=== PATIENT | male | born 1945 | race Caucasian/White ===

== ENCOUNTER → 2020-01-04 10:07 | Outpatient (CLI) | payer MEDICARE, BC, SELFPAY ==
--- NOTE | ~2020-01-04 | XR_ITS ---
XR chest 2V DATE: 01/04/2020 10:49 INDICATION: Hypertension. Nonsmoker. TECHNIQUE: 2 views COMPARISON: None FINDINGS: Cardiomegaly with left ventricular enlargement. There is aortic calcification and mild unfo lding. No hilar or mediastinal enlargement. No pulmonary vascular congestion or pleural effusion or pneumoth orax. No pulmonary infiltrate or consolidation. Diffuse osteopenia. IMPRESSION: Cardiomegaly, left ventricular enlargement Aortic atherosclerosis No active pulmonary disease Reviewed, dictated and finalized at location A.
== END ==
PROVIDERS: PCP Internal Medicine; Visit Provider Internal Medicine
DX: I10 Essential (primary) hypertension (principal); I70.0 Atherosclerosis of aorta; I51.7 Cardiomegaly
CPT/HCPCS: 71046

== ENCOUNTER 2024-09-13 22:31 | Emergency (ER) | payer MEDICARE, SELFPAY ==
--- NOTE | ~2024-09-13 | CT_ITS ---
EXAMINATION: CT brain wo con DATE: 09/14/2024 00:34 INDICATION: Left hemiparesis. TECHNIQUE: Computed tomography (CT) of the head was performed without intravenous contrast. The mA wa s adjusted according to patient size. Iterative reconstruction technique was employed. The dose-lengt h product was 681.00 mGy-cm. COMPARISON: Head CT 03/08/2017 FINDINGS: There is acute hematoma involving the right thalamus and posterior limb right internal caps ule. There is an old infarct in the left thalamus. There is an old infarct in the right basal ganglia . There are scattered areas of low attenuation in the cerebral white matter. There is no acute ischem ic infarct or abnormal mass lesion. The ventricles are normal in size. There is mild mucosal thickeni ng in the paranasal sinuses. There are likely changes of ocular lens replacement surgeries. The masto id air cells are normal. IMPRESSION: 1. Acute hematoma involving the right thalamus and posterior limb right internal capsule. 2. 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 3. Mild nonspecific cerebral white matter disease, which likely represents chronic small vessel ische adán disease. Reviewed, dictated and finalized at location A. IMPRESSION: 1. Acute hematoma involving the right thalamus and posterior limb right interna l capsule. 2. 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 3. 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
--- NOTE | ~2024-09-13 | CT_ITS ---
EXAMINATION: CT cervical spine wo con DATE: 09/14/2024 00:35 INDICATION: Left arm and leg weakness. Fall. TECHNIQUE: Computed tomography (CT) of the cervical spine was performed without intravenous contrast. Automated exposure control and iterative reconstruction technique were employed. The dose-length pro duct was 570.40 mGy-cm. COMPARISON: CT cervical spine 03/08/2017 FINDINGS: There is kyphosis of cervical spine. Vertebral body heights are normal. There is moderately decreased disc height at C2-C3, severely decreased disc height at C3-C4 and C4-C5, moderately decrea sed disc height at C5-C6, and severely decreased disc height at C6-C7 and C7-T1. The following disc l evels are specifically discussed: C2-C3: There is severe right and mild left uncovertebral joint osteoarthritis. There is severe bilate ral facet joint osteoarthritis. There is mild right neural foraminal stenosis. There is no central ca nal stenosis. C3-C4: There is severe right and moderate left uncovertebral joint osteoarthritis. There is severe ri ght and moderate left facet joint osteoarthritis. There is moderate right and mild left neural forami nal stenosis. There is mild central canal stenosis. C4-C5: There is severe bilateral uncovertebral joint osteoarthritis. There is moderate bilateral face t joint osteoarthritis. There is moderate bilateral neural foraminal stenosis. There is mild central canal stenosis. C5-C6: There is moderate right and severe left uncovertebral joint osteoarthritis. There is mild bila teral facet joint osteoarthritis. There is mild left neural foraminal stenosis. There is mild central canal stenosis. C6-C7: There is severe bilateral uncovertebral joint osteoarthritis. There is mild bilateral facet syl int osteoarthritis. There is mild bilateral neural foraminal stenosis. There is mild central canal st enosis. C7-T1: There is severe bilateral uncovertebral joint osteoarthritis. There is severe bilateral facet joint osteoarthritis. There is mild left neural foraminal stenosis. There is no central canal stenosi s. IMPRESSION: 1. No fracture. 2. Severe cervical spondylosis. Reviewed, dictated and finalized at location A.
--- NOTE | ~2024-09-13 | CT_ITS ---
EXAMINATION: CTA brain carotid DATE: 09/14/2024 00:35 INDICATION: Left arm and leg weakness. TECHNIQUE: Computed tomographic angiography (CTA) of the head was performed with 100 mL Omnipaque-350 intravenous contrast. CTA of the neck was performed with intravenous contrast. Automated exposure co ntrol and iterative reconstruction technique were employed. The dose-length product was 1168.96 mGy-c m. Maximum intensity projection and volume rendered 3D-reconstructions were created by the technologi st on a separate workstation. COMPARISON: Head CT 09/14/2024 FINDINGS: HEAD CTA: There is a hematoma involving the right thalamus and posterior limb right internal capsule. There is an old infarct in the left thalamus. There is an old infarct in the right basal ganglia. Th ere are scattered areas of low attenuation in the cerebral white matter. There is no acute ischemic i nfarct or abnormal mass lesion. The ventricles are normal in size. There is mild mucosal thickening i n the paranasal sinuses. There are likely changes of ocular lens replacement surgeries. The mastoid a ir cells are normal. The vertebral arteries are codominant. There is no significant stenosis of basil ar artery or the posterior cerebral arteries. The posterior communicating arteries are normal. There is no significant stenosis of the intracranial internal carotid arteries or anterior or middle cerebr al arteries. Anterior communicating artery is normal. NECK CTA: There are no pathologically enlarged lymph nodes. There are nodules in the thyroid measurin g up to 12 mm, likely not clinically significant. There is no significant stenosis of the vertebral a rteries. There is mild plaque in the proximal internal carotid arteries. There is 6% stenosis of the proximal right internal carotid artery relative to normal distal artery lumen diameter (NASCET criter ia). There is 0% stenosis of the proximal left internal carotid artery relative to normal distal vicki ry lumen diameter. There is extensive dental disease. There is severe cervical spondylosis. IMPRESSION: 1. Acute hematoma involving the right thalamus and posterior limb right internal capsule. 2. 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 3. Mild nonspecific cerebral white matter disease, which likely represents chronic small vessel ische adán disease. 4. No aneurysm or significant intracranial arterial stenosis. 5. 6% stenosis of the proximal right internal carotid artery relative to normal distal artery lumen d iameter (NASCET criteria). 6. 0% stenosis of the proximal left internal carotid artery relative to normal distal artery lumen di ameter. Reviewed, dictated and finalized at location A. IMPRESSION: 1. Acute hematoma involving the right thalamus and posterior limb right interna l capsule. 2. 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 3. 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 4. No aneurysm or significant intracranial arterial stenosis. 5. 6% stenosis of the proximal right internal carotid artery relative to normal distal artery lumen diameter (NASCET criteria). 6. 0% stenosis of the proximal left internal carotid artery relative to normal distal artery lumen diameter.
--- NOTE | ~2024-09-13 | XR_ITS ---
XR chest 2V Ordering provider: Jeanie Yoo MD History: 79 years Male with . generalized weakness . Comparison: January 04, 2020 FINDINGS: MEDIASTINUM: The cardiac silhouette is slightly enlarged. LUNGS: No infiltrates, effusions or pneumothorax. OTHER: No free air under the diaphragm. Degenerative changes of the spine. IMPRESSION: No acute cardiopulmonary pathology. Reviewed, dictated and finalized at location A.
[2024-09-13 22:33] VITALS: BP 152/84; PULSE 99; RESP 15; TEMP 36.6; O2SAT 100
--- OUTSIDE RECORDS SUMMARY | 2024-09-13 22:33 | XMS_ITS | Encounter Summary ---
Author Organization [facility] Address [address] [place] [address] Care Team Providers Care [employer] S[employer] Name Role Phone Unavailable Primary Care Provider Unavailabl e Encounter Details Date Type Department Care Team (Late st Contact Info) Description 07/02/1998 Outpatient Historical [facility],NON-PATIENT Jonah Frost MD [address] [facility] [address] [place] [id number] Injury, other and unspecified, finger (Primary Dx) Social History Tobacco Use Types Packs/Day Years Used Date Smoking Tobacco: Never Assessed Sex and Gender Information Value Date Recorded Sex Assigned at Not on file Legal Sex Male 4:00 AM [employer] Gender Identity Not on file Sexual Orientation Not on file documented as of this encounter Plan of Treatment Not on file documented as of this encounter Visit Diagnoses Diagnosis Injury, other and unspecified, finger- Primary documented in this encounter
--- OUTSIDE RECORDS SUMMARY | 2024-09-13 22:33 | XMS_ITS | Data Portability ---
Author Organization [facility], Main Office Address [address] [place] [address] Assessment No assessment recorded. Plan of Treatment Reminders Order Date Submit Date Provider Last Modified By Organization Details Last Modified Time Details Appointments Any 30 2024 02:30P Simin Dillard NP Not available Not available Not available Lab PSA, total, serum or plasma 2023 024 JOSEPH Not available 09/23/2023 19:37:59 HbA1c (hemoglob in A1c), blood 2023 024 [facility] (Lab), [address] [place], [address], 09/24/2023 00:04:22 CBC w/ auto diff 2023 024 [facility] (Lab), [address] [place], [address], 09/23/2023 19:08:06 BMP, serum or plasma 2023 024 [facility] (Lab), [address] [place], [address], 09/23/2023 19:20:03 HbA1c (hemoglob in A1c), blood 2022 023 [facility], [address] [place], [address], 03/23/2023 07:38:12 CBC w/ auto diff 2022 023 [facility], [address] [place], [address], 03/22/2023 18:39:54 BMP, serum or plasma 2022 023 [facility], [address] [place], [address], 03/22/2023 18:58:38 lipid panel, serum 2022 023 [facility], [address] [place], [address], 03/22/2023 18:58:43 hepatic function panel, serum 2022 023 [facility], [address] [place], [address], 03/22/2023 18:58:47 PSA, serum or plasma 2022 023 [email or web address] [id number] [facility], [address] [place], [address], 03/29/2023 08:47:49 lipid panel, serum 2022 023 [facility], [address] [place], [address], 09/21/2022 21:26:15 hepatic function panel, serum 2022 023 [facility], [address] [place], [address], 09/21/2022 21:26:18 HbA1c (hemoglob in A1c), blood 2022 023 [email or web address] [facility], [address] [place], [address], 09/29/2022 08:14:14 microalbu min, urine 2022 023 [facility], [address] [place], [address], 09/21/2022 21:19:14 CBC w/ auto diff 2022 023 [email or web address] [facility], [address] [place], [address], 09/21/2022 15:26:35 BMP, serum or plasma 2022 023 [email or web address] [facility], [address] [place], [address], 09/21/2022 15:28:57 PSA, serum or plasma 2022 023 [facility], [address] [place], [address], 09/22/2022 07:49:15 Referral diabetic ophthalmo logy referral 2022 023 JOSEPH Cutler, [address], [place], [address], 04/13/2023 07:49:41 dermatolo gist referral 2022 023 [email or web address] Not available 09/23/2022 09:52:33 diabetic ophthalmo logy referral 2022 023 [email or web address] Not available 09/23/2022 09:52:33 Procedures colonosco py procedure (PROC) - 5 year repeat due 03/2023 023 [facility], [address] [place] [address], [address], 10/26/2022 09:23:14 Surgeries None recorded. Imaging None recorded. Medication Orders amlodipin e 5 mg tablet 2023 024 [id number], [address], [place], [place], [id number], 02/24/2024 10:48:53 losartan 100 mg tablet 2023 024 [id number], [address], [place], [place], [id number], 09/23/2023 10:27:51 Patient TargetsNo targets recorded. Patient Instructions Encounter Date Encounter Id Patient Instructions Last Modified By Organization Details Last Modified Time 09/21/2022 [id number] dementia rating scale-2* JOSEPH Not available 09/21/2022 14:16:24 depression screening* JOSEPH Not available 09/21/2022 14:16:40 alcohol misuse* JOSEPH Not available 09/21/2022 14:16:53 multi-dimensiona l health assessment questionnaire* JOSEPH Not available 09/21/2022 14:16:11 Personalized a lt Plan and Screening Recommendations Advance Directives - Do you have one? Yes Advance Directives - Do we have your advance directive on file in your health record? No, please bring in a copy at your earliest convenience Primary Prevention/Interven tion (prevents or decreases the chance of common diseases from occurring) Smoking Risk: Non Smoker Alcohol Misuse Screening: Negative Weight: Appropriate Overwei ght continue your current weight loss efforts try to lose 5% of your body weight try to lose 10% of your body weight Physical activity: Need more exercise/physical activity minimum of 10-20 minutes of activity that causes mild breathlessness/day Nutrition: Good Fall Risk (screened today): Low Vaccines Pneumococcal: Ordered Recommended today Recommended today, but you have declined No further needed Influenza: Your next one in the fall of this year Chronic Disease Risks Stroke: Low Risk Intermediate Risk Heart Attack: Low risk Intermediate Risk Clogging of the Arteries: Low risk Intermediate Risk Diabetes: Low Risk Intermediate Risk Active diagnosis, Continue current treatment plan Secondary Prevention/Interven tion (detects treatable diseases before they may cause symptoms, disability, or ) Prostate Cancer Screening: No digital rectal exam screening necessary Colon Cancer Screening: Colonoscopy Date Screening Last Performed: 04/15/18 with repeat recommendation for 5 years Eye Disease Screening: Ordered Recommended today Dementia Risk: Low I have no recommendations Depression Screening: Negative Not available 09/21/2022 10:49:32 09/23/2023 [id number] dementia rating scale-2* Not available 09/27/2023 08:53:05 depression screening* Not available 11/01/2023 09:32:10 alcohol misuse* Not available 11/01/2023 09:32:10 multi-dimensiona l health assessment questionnaire* Not available 09/27/2023 08:53:09 care plan* [email or web address] Not available 09/26 08:53:15 advance care planning: care instructions Not available 09/23/2023 10:27:44 advance directiv es: care instructions Not available 09/23/2023 10:27:44 [place] Advance Directives Not available 09/23/2023 10:27:44 Personalized a lt Plan and Screening Recommendations Advance Directives - Do you have one? Yes Advance Directives - Do we have your advance directive on file in your health record? Primary Prevention/Interven tion (prevents or decreases the chance of common diseases from occurring) Smoking Risk: Non Smoker Alcohol Misuse Screening: Negative Weight: Appropriate Overwei ght continue your current weight loss efforts try to lose 5% of your body weight try to lose 10% of your body weight Physical activity: Need more exercise/physical activity minimum of 10-20 minutes of activity that causes mild breathlessness/day minimum of 20-30 minutes activity that causes mild breathlessness/day Nutrition: Good Average Fall Risk (screened today): Low Vaccines Pneumococcal: Ordered Recommended today Recommended today, but you have declined No further needed Influenza: Your next one in the fall of this year Chronic Disease Risks Stroke: Low Risk Intermediate Risk I have no recommendations Act debbie diagnosis, Continue current treatment plan Heart Attack: Low risk Intermediate Risk I have no recommendations Act debbie diagnosis, Continue current treatment plan Clogging of the Arteries: Low risk Intermediate Risk I have no recommendations Act debbie diagnosis, Continue current treatment plan Diabetes: Low Risk Intermediate Risk Active diagnosis, Continue current treatment plan Secondary Prevention/Interven tion (detects treatable diseases before they may cause symptoms, disability, or ) Prostate Cancer Screening: No digital rectal exam screening necessary Colon Cancer Screening: No screening necessary Date Screening Last Performed: Eye Disease Screening: No Eye exam necessary Dementia Risk: Low I have no recommendations Depression Screening: Negative [email or web address] Not available 09/23/2023 10:38:44 Reason for Referral Diabetic Ophthalmology Refer ral for Type 2 diabetes mellitus without complication Referring Physician: Shireen Mcdowell, Family Medicine, Encounter Date: 09/21/2022 Inpatient Services Rn Referral for L esion of skin of face Referring Physician: Shireen Mcdowell, [facility], Encounter Date: 09/21/2022 Diabetic Ophthalmology Refer ral for Type 2 diabetes mellitus without complication Referring Physician: Shireen Mcdowell [facility], Encounter Date: 03/22/2023 Results Created Date Observation Date Name Description Value Unit Range Abnormal Flag Note LastModifiedBy Organization Detail LastModifiedTime 09/22/19 23 09/21/2022 CBC/C OMPLE TE BLD COUNT W/DIF F white blood cells 8.0 x10'3 /uL 4.2-10 .8 Not Available [facility] (Lab) [address] [place], [address], 09/21/2022 20:51:10 09/22/19 23 09/21/2022 CBC/C OMPLE TE BLD COUNT W/DIF F red blood cells 5.01 x10'6 /uL 4.10-5 .80 Not Available [facility] (Lab) [address] [place], [address], 09/21/2022 20:51:10 09/22/19 23 09/21/2022 CBC/C OMPLE TE BLD COUNT W/DIF F hemoglobin 14.9 g/dL 13.2-1 7.0 Not Available [facility] (Lab) [address] [place], [address], 09/21/2022 20:51:10 09/22/19 23 09/21/2022 CBC/C OMPLE TE BLD COUNT W/DIF F hematocrit 45.7 % 39.3-5 0.0 Not Available [facility] (Lab) [address] [place], [address], 09/21/2022 20:51:10 09/22/19 23 09/21/2022 CBC/C OMPLE TE BLD COUNT W/DIF F mean red cell volume 91.2 fL 80.0-9 7.0 Not Available [facility] (Lab) [address] [place], [address], 09/21/2022 20:51:10 09/22/19 23 09/21/2022 CBC/C OMPLE TE BLD COUNT W/DIF F mean red cell hemoglobin 29.7 pg 27.0-3 3.0 Not Available [facility] (Lab) [address] [place], [address], 09/21/2022 20:51:10 09/22/19 23 09/21/2022 CBC/C OMPLE TE BLD COUNT W/DIF F mean RBC HGB concentratio n 32.6 g/dL 31.0-3 6.0 Not Available [facility] (Lab) [address] [place], [address], 09/21/2022 20:51:10 09/22/19 23 09/21/2022 CBC/C OMPLE TE BLD COUNT W/DIF F red cell distribution width 13.3 % 11.8-1 5.5 Not Available [facility] (Lab) [address] [place], [address], 09/21/2022 20:51:10 09/22/19 23 09/21/2022 CBC/C OMPLE TE BLD COUNT W/DIF F platelets 214 x10'3 /uL 150-40 0 Not Available [facility] (Lab) [address] [place], [address], 09/21/2022 20:51:10 09/22/19 23 09/21/2022 CBC/C OMPLE TE BLD COUNT W/DIF F mean platelet volume 10.2 fL 9.0-12 .4 Not Available [facility] (Lab) [address] [place], [address], 09/21/2022 20:51:10 09/22/19 23 09/21/2022 CBC/C OMPLE TE BLD COUNT W/DIF F neutrophils 59.0 % 39.0-7 2.0 Not Available [facility] (Lab) [address] [place], [address], 09/21/2022 20:51:10 09/22/19 23 09/21/2022 CBC/C OMPLE TE BLD COUNT W/DIF F lymphocytes 27.5 % 16.0-4 7.0 Not Available [facility] (Lab) [address] [place], [address], 09/21/2022 20:51:10 09/22/19 23 09/21/2022 CBC/C OMPLE TE BLD COUNT W/DIF F monocytes 10.1 % 5.0-12 .0 Not Available [facility] (Lab) [address] [place], [address], 09/21/2022 20:51:10 09/22/19 23 09/21/2022 CBC/C OMPLE TE BLD COUNT W/DIF F eosinophils 2.7 % 1.0-7. 0 Not Available [facility] (Lab) [address] [place], [address], 09/21/2022 20:51:10 09/22/19 23 09/21/2022 CBC/C OMPLE TE BLD COUNT W/DIF F basophils 0.5 % 0.0-2. 0 Not Available [facility] (Lab) [address] [place], [address], 09/21/2022 20:51:10 09/22/19 23 09/21/2022 CBC/C OMPLE TE BLD COUNT W/DIF F immature granulocytes 0.2 % 0.00-0 .50 Not Available [facility] (Lab) [address] [place], [address], 09/21/2022 20:51:10 09/22/19 23 09/21/2022 CBC/C OMPLE TE BLD COUNT W/DIF F neutrophils, absolute count 4.74 x10'3 /uL 1.5-8. 0 Not Available [facility] (Lab) [address] [place], [address], 09/21/2022 20:51:10 09/22/19 23 09/21/2022 CBC/C OMPLE TE BLD COUNT W/DIF F lymphocytes, absolute count 2.21 x10'3 /uL 1.07-3 .43 Not Available [facility] (Lab) [address] [place], [address], 09/21/2022 20:51:10 09/22/19 23 09/21/2022 CBC/C OMPLE TE BLD COUNT W/DIF F monocytes, absolute count 0.81 x10'3 /uL 0.29-0 .99 Not Available [facility] (Lab) [address] [place], [address], 09/21/2022 20:51:10 09/22/19 23 09/21/2022 CBC/C OMPLE TE BLD COUNT W/DIF F eosinophils, absolute count 0.22 x10'3 /uL 0.02-0 .53 Not Available [facility] (Lab) [address] [place], [address], 09/21/2022 20:51:10 09/22/19 23 09/21/2022 CBC/C OMPLE TE BLD COUNT W/DIF F basophils, absolute count 0.04 x10'3 /uL 0.01-0 .08 Not Available [facility] (Lab) [address] [place], [address], 09/21/2022 20:51:10 09/22/19 23 09/21/2022 CBC/C OMPLE TE BLD COUNT W/DIF F immature granulocytes ,absolute 0.02 x10'3 /uL 0.00-0 .05 Not Available [facility] (Lab) [address] [place], [address], 09/21/2022 20:51:10 09/22/19 23 09/21/2022 CBC/C OMPLE TE BLD COUNT W/DIF F nucleated red blood cells 0.0 % -0 Not Available [facility] (Lab) [address] [place], [address], 09/21/2022 20:51:10 09/22/19 23 09/21/2022 CBC/C OMPLE TE BLD COUNT W/DIF F NRBC# 0.00 x10'3 /uL Not Available [facility] (Lab) [address] [place], [address], 09/21/2022 20:51:10 09/22/19 23 09/21/2022 MICRO ALBUM IN RANDO M URINE microalbumin , urine 452.8 mg/L 0.0-16 .6 high Not Available [facility] (Lab) [address] [place], [address], 09/21/2022 21:19:14 09/22/19 23 09/21/2022 BASIC METAB OLIC PANEL sodium 139 mmol/ L 137-14 5 Not Available [facility] (Lab) [address] [place], [address], 09/21/2022 21:26:12 09/22/19 23 09/21/2022 BASIC METAB OLIC PANEL potassium 4.3 mmol/ L 3.5-5. 1 Not Available [facility] (Lab) [address] [place], [address], 09/21/2022 21:26:12 09/22/19 23 09/21/2022 BASIC METAB OLIC PANEL chloride 105 mmol/ L 98-107 Not Available [facility] (Lab) [address] [place], [address], 09/21/2022 21:26:12 09/22/19 23 09/21/2022 BASIC METAB OLIC PANEL carbon dioxide 23 mmol/ L 22-30 Not Available [facility] (Lab) [address] [place], [address], 09/21/2022 21:26:12 09/22/19 23 09/21/2022 BASIC METAB OLIC PANEL anion gap 15.3 mmol/ L 14-22 Not Available [facility] (Lab) [address] [place], [address], 09/21/2022 21:26:12 09/22/19 23 09/21/2022 BASIC METAB OLIC PANEL glucose 163 mg/dL 70-99 high Not Available [facility] (Lab) [address] [place], [address], 09/21/2022 21:26:12 09/22/19 23 09/21/2022 BASIC METAB OLIC PANEL BUN 12 mg/dL 8-19 Not Available [facility] (Lab) [address] [place], [address], 09/21/2022 21:26:12 09/22/19 23 09/21/2022 BASIC METAB OLIC PANEL creatinine 0.86 mg/dL 0.66-1 .25 Not Available [facility] (Lab) [address] [place], [address], 09/21/2022 21:26:12 09/22/19 23 09/21/2022 BASIC METAB OLIC PANEL GFR >60 Refer ence Range : [place] ge GFR Healt hy Adult : >60 mL/mi n/1.7 3 m2 Chron ic Kidne y Disea se: 15-60 mL/mi n/1.7 3 m2 Kidne y Failu re: <15/m L/min /1.73 m2 www.n iddk. nih.g ov The MDRD study equat ion has not been valid ated in child nora <18 years of age; pregn ant women ; the elder ly >85 years of age; or in some racia l or ethni c subgr oups, such as Hispa nics. Outsi de the valid ated carlyle eters , estim ated GFR is less accur ate, requi ring clini wes judgm ent on a case- by-ca se basis . Clini wes inter preta tion for other races and ages must be made by the clini marilyn. The MDRD study equat ion has not been valid ated for the evalu ation of serum creat inine relat ed to nutri jody l statu s or medic ation usage . For perso ns <18 years of age, a pedia tric GFR calcu lator is avail able on the [facility] websi te: https ://ww w.kid sindy.o rg/pr ofess ional s/kdo qi/gf r_cal culat or Not Available [facility] (Lab) [address] [place], [address], 09/21/2022 21:26:12 09/22/19 23 09/21/2022 BASIC METAB OLIC PANEL calcium 8.9 mg/dL 8.4-10 .2 Not Available [facility] (Lab) [address] [place], [address], 09/21/2022 21:26:12 09/22/19 23 09/21/2022 LIPID PANEL cholesterol 138 mg/dL 140-19 9 low NIH MARIA ELENA NSUS RECOM MENDA TION FOR DONA STERO L: ADULT CHILD LOW RISK: <200 <170 BORDE RLINE : <200- 239 ----- HIGH RISK: >240 >200 Not Available [facility] (Lab) [address] [place], [address], 09/21/2022 21:26:15 09/22/19 23 09/21/2022 LIPID PANEL triglyceride s 157 mg/dL 0-150 high NIH MARIA ELENA NSUS REPOR T RECOM MENDA TION FOR TRIGL YCERI KHARI: ADULT CHILD LOW RISK: <150 ----- BODER LINE: 150-1 99 ----- HIGH RISK: >200 ----- Not Available [facility] (Lab) [address] [place], [address], 09/21/2022 21:26:15 09/22/19 23 09/21/2022 LIPID PANEL HDL cholesterol 35 mg/dL 40- low Not Available [facility] (Lab) [address] [place], [address], 09/21/2022 21:26:15 09/22/19 23 09/21/2022 LIPID PANEL LDL cholesterol, calculated 72 mg/dL 0-130 NIH MARIA ELENA NSUS REPOR T RECOM MENDA TIONS FOR LDL: ADULT CHILD LOW RISK <130 <110 (OPTI MAL LDL) <100 ----- BORDE RLINE : 130-1 59 ----- HIGH RISK: >160 >130 A TRIGL YCERI DE RESUL T >400 INVAL IDATE S THE CALCU LATIO N FOR LDL FRACT IONAT ION - THE LDL RESUL T WILL NOT BE REPOR PORSCHE. Not Available [facility] (Lab) [address] [place], [address], 09/21/2022 21:26:15 09/22/19 23 09/21/2022 HEPAT IC/LI SUE PANEL alkaline phosphatase 78 U/L 38-126 Not Available [facility] (Lab) [address] [place], [address], 09/21/2022 21:26:18 09/22/19 23 09/21/2022 HEPAT IC/LI SUE PANEL alanine aminotransfe rase 31 U/L 0-50 Not Available [facility] (Lab) [address] [place], [address], 09/21/2022 21:26:18 09/22/19 23 09/21/2022 HEPAT IC/LI SUE PANEL aspartate aminotransfe rase 29 U/L 15-46 Not Available [facility] (Lab) [address] [place], [address], 09/21/2022 21:26:18 09/22/19 23 09/21/2022 HEPAT IC/LI SUE PANEL bilirubin, total 0.70 mg/dL 0.20-1 .30 Not Available [facility] (Lab) [address] [place], [address], 09/21/2022 21:26:18 09/22/19 23 09/21/2022 HEPAT IC/LI SUE PANEL bilirubin, conjugated (direct) 0.00 mg/dL 0.00-0 .30 Not Available [facility] (Lab) [address] [place], [address], 09/21/2022 21:26:18 09/22/19 23 09/21/2022 HEPAT IC/LI SUE PANEL biliurubin,u ncong. (indirect) 0.30 mg/dL 0.00-1 .1 Not Available [facility] (Lab) [address] [place], [address], 09/21/2022 21:26:18 09/22/19 23 09/21/2022 HEPAT IC/LI SUE PANEL total protein 8.0 g/dL 6.3-8. 2 Not Available [facility] (Lab) [address] [place], [address], 09/21/2022 21:26:18 09/22/19 23 09/21/2022 HEPAT IC/LI SUE PANEL albumin 4.2 g/dL 3.0-4. 4 Not Available [facility] (Lab) [address] [place], [address], 09/21/2022 21:26:18 09/22/19 23 09/21/2022 HEPAT IC/LI SUE PANEL globulin 3.8 g/dL 2.6-4. 2 Not Available [facility] (Lab) [address] [place], [address], 09/21/2022 21:26:18 09/22/19 23 09/21/2022 HEPAT IC/LI SUE PANEL A/G ratio 1.1 ratio 1.0-2. 0 Not Available [facility] (Lab) [address] [place], [address], 09/21/2022 21:26:18 09/22/19 23 09/21/2022 PSA, TOTAL PSA, total 5.97 NG/mL 0.00-4 .00 high Not Available [facility] (Lab) [address] [place], [address], 09/21/2022 21:56:05 09/22/19 23 09/21/2022 HEMOG LOBIN A1C HA1C 7.8 % 4.0-6. 0 high Diabe elizabeth Scree angela Crite mohinder: <5.7% Consi stent with absen ce of diabe elizabeth 5.7-6 .4% Consi stent with incre ased risk for diabe elizabeth (pred iabet es) >OR=6 .5% Consi stent with diabe elizabeth REFER ENCE: Diabe elizabeth Care 2016, 39(Hernández ppl.1 ):s13 -s22 Not Available [facility] (Lab) [address] [place], [address], 09/21/2022 22:13:06 03/22/20 23 03/22/2023 CBC/C OMPLE TE BLD COUNT W/DIF F white blood cells 8.4 x10'3 /uL 4.2-10 .8 Not Available [facility] (Lab) [address] [place], [address], 03/22/2023 18:39:54 03/22/20 23 03/22/2023 CBC/C OMPLE TE BLD COUNT W/DIF F red blood cells 4.91 x10'6 /uL 4.10-5 .80 Not Available [facility] (Lab) [address] [place], [address], 03/22/2023 18:39:54 03/22/20 23 03/22/2023 CBC/C OMPLE TE BLD COUNT W/DIF F hemoglobin 15.0 g/dL 13.2-1 7.0 Not Available [facility] (Lab) [address] [place], [address], 03/22/2023 18:39:54 03/22/2003/22/2023 CBC/C OMPLE TE BLD COUNT W/DIF F hematocrit 44.9 % 39.3-5 0.0 Not Available [facility] (Lab) [address] [place], [address], 03/22/2023 18:39:54 03/22/2003/22/2023 CBC/C OMPLE TE BLD COUNT W/DIF F mean red cell volume 91.4 fL 80.0-9 7.0 Not Available [facility] (Lab) [address] [place], [address], 03/22/2023 18:39:54 03/22/2003/22/2023 CBC/C OMPLE TE BLD COUNT W/DIF F mean red cell hemoglobin 30.5 pg 27.0-3 3.0 Not Available [facility] (Lab) [address] [place], [address], 03/22/2023 18:39:54 03/22/2003/22/2023 CBC/C OMPLE TE BLD COUNT W/DIF F mean RBC HGB concentratio n 33.4 g/dL 31.0-3 6.0 Not Available [facility] (Lab) [address] [place], [address], 03/22/2023 18:39:54 03/22/2003/22/2023 CBC/C OMPLE TE BLD COUNT W/DIF F red cell distribution width 13.4 % 11.8-1 5.5 Not Available [facility] (Lab) [address] [place], [address], 03/22/2023 18:39:54 03/22/20 23 03/22/2023 CBC/C OMPLE TE BLD COUNT W/DIF F platelets 211 x10'3 /uL 150-40 0 Not Available [facility] (Lab) [address] [place], [address], 03/22/2023 18:39:54 03/22/2003/22/2023 CBC/C OMPLE TE BLD COUNT W/DIF F mean platelet volume 9.5 fL 9.0-12 .4 Not Available [facility] (Lab) [address] [place], [address], 03/22/2023 18:39:54 03/22/2003/22/2023 CBC/C OMPLE TE BLD COUNT W/DIF F neutrophils 56.7 % 39.0-7 2.0 Not Available [facility] (Lab) [address] [place], [address], 03/22/2023 18:39:54 03/22/2003/22/2023 CBC/C OMPLE TE BLD COUNT W/DIF F lymphocytes 29.9 % 16.0-4 7.0 Not Available [facility] (Lab) [address] [place], [address], 03/22/2023 18:39:54 03/22/2003/22/2023 CBC/C OMPLE TE BLD COUNT W/DIF F monocytes 9.3 % 5.0-12 .0 Not Available [facility] (Lab) [address] [place], [address], 03/22/2023 18:39:54 03/22/2003/22/2023 CBC/C OMPLE TE BLD COUNT W/DIF F eosinophils 3.2 % 1.0-7. 0 Not Available [facility] (Lab) [address] [place], [address], 03/22/2023 18:39:54 03/22/20 23 03/22/2023 CBC/C OMPLE TE BLD COUNT W/DIF F basophils 0.7 % 0.0-2. 0 Not Available [facility] (Lab) [address] [place], [address], 03/22/2023 18:39:54 03/22/2003/22/2023 CBC/C OMPLE TE BLD COUNT W/DIF F immature granulocytes 0.2 % 0.00-0 .50 Not Available [facility] (Lab) [address] [place], [address], 03/22/2023 18:39:54 03/22/2003/22/2023 CBC/C OMPLE TE BLD COUNT W/DIF F neutrophils, absolute count 4.76 x10'3 /uL 1.5-8. 0 Not Available [facility] (Lab) [address] [place], [address], 03/22/2023 18:39:54 03/22/2003/22/2023 CBC/C OMPLE TE BLD COUNT W/DIF F lymphocytes, absolute count 2.51 x10'3 /uL 1.07-3 .43 Not Available [facility] (Lab) [address] [place], [address], 03/22/2023 18:39:54 03/22/2003/22/2023 CBC/C OMPLE TE BLD COUNT W/DIF F monocytes, absolute count 0.78 x10'3 /uL 0.29-0 .99 Not Available [facility] (Lab) [address] [place], [address], 03/22/2023 18:39:54 03/22/2003/22/2023 CBC/C OMPLE TE BLD COUNT W/DIF F eosinophils, absolute count 0.27 x10'3 /uL 0.02-0 .53 Not Available [facility] (Lab) [address] [place], [address], 03/22/2023 18:39:54 03/22/2003/22/2023 CBC/C OMPLE TE BLD COUNT W/DIF F basophils, absolute count 0.06 x10'3 /uL 0.01-0 .08 Not Available [facility] (Lab) [address] [place], [address], 03/22/2023 18:39:54 03/22/20 23 03/22/2023 CBC/C OMPLE TE BLD COUNT W/DIF F immature granulocytes ,absolute 0.02 x10'3 /uL 0.00-0 .05 Not Available [facility] (Lab) [address] [place], [address], 03/22/2023 18:39:54 03/22/2003/22/2023 CBC/C OMPLE TE BLD COUNT W/DIF F nucleated red blood cells 0.0 % -0 Not Available [facility] (Lab) [address] [place], [address], 03/22/2023 18:39:54 03/22/2003/22/2023 CBC/C OMPLE TE BLD COUNT W/DIF F NRBC# 0.00 x10'3 /uL Not Available [facility] (Lab) [address] [place], [address], 03/22/2023 18:39:54 03/22/2003/22/2023 BASIC METAB OLIC PANEL sodium 140 mmol/ L 137-14 5 Not Available [facility] (Lab) [address] [place], [address], 03/22/2023 18:58:38 03/22/2003/22/2023 BASIC METAB OLIC PANEL potassium 4.2 mmol/ L 3.5-5. 1 Not Available [facility] (Lab) [address] [place], [address], 03/22/2023 18:58:38 03/22/2003/22/2023 BASIC METAB OLIC PANEL chloride 105 mmol/ L 98-107 Not Available [facility] (Lab) [address] [place], [address], 03/22/2023 18:58:38 03/22/2003/22/2023 BASIC METAB OLIC PANEL carbon dioxide 25 mmol/ L 22-30 Not Available [facility] (Lab) [address] [place], [address], 03/22/2023 18:58:38 03/22/2003/22/2023 BASIC METAB OLIC PANEL anion gap 14.2 mmol/ L 14-22 Not Available [facility] (Lab) [address] [place], [address], 03/22/2023 18:58:38 03/22/2003/22/2023 BASIC METAB OLIC PANEL glucose 116 mg/dL 70-99 high Not Available [facility] (Lab) [address] [place], [address], 03/22/2023 18:58:38 03/22/2003/22/2023 BASIC METAB OLIC PANEL BUN 11 mg/dL 8-19 Not Available [facility] (Lab) [address] [place], [address], 03/22/2023 18:58:38 03/22/2003/22/2023 BASIC METAB OLIC PANEL creatinine 0.80 mg/dL 0.66-1 .25 Not Available [facility] (Lab) [address] [place], [address], 03/22/2023 18:58:38 03/22/2003/22/2023 BASIC METAB OLIC PANEL GFR >60 Refer ence Range : [place] GFR Healt hy Adult : >60 mL/mi n/1.7 3 m2 Chron ic Kidne y Disea se: 15-60 mL/mi n/1.7 3 m2 Kidne y Failu re: <15/m L/min /1.73 m2 www.n iddk. nih.g ov The MDRD study equat ion has not been valid ated in child nora <18 years of age; pregn ant women ; the elder ly >85 years of age; or in some racia l or ethni c subgr oups, such as John nics. Outsi de the valid ated carlyle eters , estim ated GFR is less accur ate, requi ring clini wes judgm ent on a case- by-ca se basis . Clini wes inter preta tion for other races and ages must be made by the clini marilyn. The MDRD study equat ion has not been valid ated for the evalu ation of serum creat inine relat ed to nutri jody l statu s or medic ation usage . For perso ns <18 years of age, a pedia tric GFR calcu lator is avail able on the [facility] websi te: https :[email or web address] rg/pr ofess ional s/kdo qi/gf r_cal culat or Not Available [facility] (Lab) [address] [place], [address], 03/22/2023 18:58:38 03/22/2003/22/2023 BASIC METAB OLIC PANEL calcium 9.2 mg/dL 8.4-10 .2 Not Available [facility] (Lab) [address] [place], [address], 03/22/2023 18:58:38 03/22/2003/22/2023 LIPID PANEL cholesterol 159 mg/dL 140-19 9 NIH MARIA ELENA NSUS RECOM MENDA TION FOR DONA STERO L: ADULT CHILD LOW RISK: <200 <170 BORDE RLINE : <200- 239 ----- HIGH RISK: >240 >200 Not Available [facility] (Lab) [address] [place], [address], 03/22/2023 18:58:43 03/22/2003/22/2023 LIPID PANEL triglyceride s 200 mg/dL 0-150 high NIH MARIA ELENA NSUS REPOR T RECOM MENDA TION FOR TRIGL YCERI KHARI: ADULT CHILD LOW RISK: <150 ----- BODER LINE: 150-1 99 ----- HIGH RISK: >200 ----- Not Available [facility] (Lab) [address] [place], [address], 03/22/2023 18:58:43 03/22/2003/22/2023 LIPID PANEL HDL cholesterol 35 mg/dL 40- low Not Available [facility] (Lab) [address] [place], [address], 03/22/2023 18:58:43 03/22/2003/22/2023 LIPID PANEL LDL cholesterol, calculated 84 mg/dL 0-130 NIH MARIA ELENA NSUS REPOR T RECOM MENDA TIONS FOR LDL: ADULT CHILD LOW RISK <130 <110 (OPTI MAL LDL) <100 ----- BORDE RLINE : 130-1 59 ----- HIGH RISK: >160 >130 A TRIGL YCERI DE RESUL T >400 INVAL IDATE S THE CALCU LATIO N FOR LDL FRACT IONAT ION - THE LDL RESUL T WILL NOT BE REPOR PORSCHE. Not Available [facility] (Lab) [address] [place], [address], 03/22/2023 18:58:43 03/22/2003/22/2023 HEPAT IC/LI SUE PANEL alkaline phosphatase 78 U/L 38-126 Not Available [facility] (Lab) [address] [place], [address], 03/22/2023 18:58:47 03/22/2003/22/2023 HEPAT IC/LI SUE PANEL alanine aminotransfe rase 32 U/L 0-50 Not Available [facility] (Lab) [address] [place], [address], 03/22/2023 18:58:47 03/22/20 23 03/22/2023 HEPAT IC/LI SUE PANEL aspartate aminotransfe rase 30 U/L 15-46 Not Available [facility] (Lab) [address] [place], [address], 03/22/2023 18:58:47 03/22/2003/22/2023 HEPAT IC/LI SUE PANEL bilirubin, total 0.60 mg/dL 0.20-1 .30 Not Available [facility] (Lab) [address] [place], [address], 03/22/2023 18:58:47 03/22/2003/22/2023 HEPAT IC/LI SUE PANEL bilirubin, conjugated (direct) 0.00 mg/dL 0.00-0 .30 Not Available [facility] (Lab) [address] [place], [address], 03/22/2023 18:58:47 03/22/2003/22/2023 HEPAT IC/LI SUE PANEL biliurubin,u ncong. (indirect) 0.40 mg/dL 0.00-1 .1 Not Available [facility] (Lab) [address] [place], [address], 03/22/2023 18:58:47 03/22/2003/22/2023 HEPAT IC/LI SUE PANEL total protein 8.0 g/dL 6.3-8. 2 Not Available [facility] (Lab) [address] [place], [address], 03/22/2023 18:58:47 03/22/2003/22/2023 HEPAT IC/LI SUE PANEL albumin 4.3 g/dL 3.0-4. 4 Not Available [facility] (Lab) [address] [place], [address], 03/22/2023 18:58:47 03/22/2003/22/2023 HEPAT IC/LI SUE PANEL globulin 3.7 g/dL 2.6-4. 2 Not Available [facility] (Lab) [address] [place], [address], 03/22/2023 18:58:47 03/22/20 23 03/22/2023 HEPAT IC/LI SUE PANEL A/G ratio 1.2 ratio 1.0-2. 0 Not Available [facility] (Lab) [address] [place], [address], 03/22/2023 18:58:47 03/22/20 23 03/22/2023 HEMOG LOBIN A1C HA1C 7.8 % 4.0-6. 0 high Diabe elizabeth Scree angela Crite mohinder: <5.7% Consi stent with absen ce of diabe elizabeth 5.7-6 .4% Consi stent with incre ased risk for diabe elizabeth (pred iabet es) >OR=6 .5% Consi stent with diabe elizabeth REFER ENCE: Diabe elizabeth Care 2016, 39(Hernández ppl.1 ):s13 -s22 Not Available [facility] [address] [place], [address], 03/22/2023 20:24:15 03/22/20 23 03/29/2023 PSA, TOTAL PSA, total 5.57 NG/mL 0.00-4 .00 high Not Available [facility] [address] [place], [address], 03/29/2023 14:34:58 03/22/20 23 03/29/2023 PSA ([facility] ORP) PSA 5.8 NG/mL 0.0-3. 6 high Siem[facility] Immun ochem ilumi nomet yesenia Metho dolog y (ICMA ) . Value s obtai mini with diffe rent assay metho ds or kits canno t be used inter ellsworth eably . Resul ts canno t be inter prete d as absol port heiden evide nce of the prese nce or absen ce of gómez sarmiento se. Perfo rmed at: [facility] Katie herrera [address] [place] [address] Lab Direc tor: Evelia mckoy MD, Phone : [phone] Not Available [facility] (Lab) [address] [place], [address], 03/29/2023 15:09:09 09/23/19 24 09/23/2023 CBC/C OMPLE TE BLD COUNT W/DIF F white blood cells 8.8 x10'3 /uL 4.2-10 .8 Not Available [facility] (Lab) [address] [place], [address], 09/23/2023 19:08:06 09/23/19 24 09/23/2023 CBC/C OMPLE TE BLD COUNT W/DIF F red blood cells 4.60 x10'6 /uL 4.10-5 .80 Not Available [facility] (Lab) [address] [place], [address], 09/23/2023 19:08:06 09/23/19 24 09/23/2023 CBC/C OMPLE TE BLD COUNT W/DIF F hemoglobin 13.8 g/dL 13.2-1 7.0 Not Available [facility] (Lab) [address] [place], [address], 09/23/2023 19:08:06 09/23/19 24 09/23/2023 CBC/C OMPLE TE BLD COUNT W/DIF F hematocrit 41.9 % 39.3-5 0.0 Not Available [facility] (Lab) [address] [place], [address], 09/23/2023 19:08:06 09/23/19 24 09/23/2023 CBC/C OMPLE TE BLD COUNT W/DIF F mean red cell volume 91.1 fL 80.0-9 7.0 Not Available [facility] (Lab) [address] [place], [address], 09/23/2023 19:08:06 09/23/19 24 09/23/2023 CBC/C OMPLE TE BLD COUNT W/DIF F mean red cell hemoglobin 30.0 pg 27.0-3 3.0 Not Available [facility] (Lab) [address] [facility] [place], [address], 09/23/2023 19:08:06 09/23/19 24 09/23/2023 CBC/C OMPLE TE BLD COUNT W/DIF F mean RBC HGB concentratio n 32.9 g/dL 31.0-3 6.0 Not Available [facility] (Lab) [address] [place], [address], 09/23/2023 19:08:06 09/23/19 24 09/23/2023 CBC/C OMPLE TE BLD COUNT W/DIF F red cell distribution width 14.0 % 11.8-1 5.5 Not Available [facility] (Lab) [address] [place], [address], 09/23/2023 19:08:06 09/23/19 24 09/23/2023 CBC/C OMPLE TE BLD COUNT W/DIF F platelets 229 x10'3 /uL 150-40 0 Not Available [facility] (Lab) [address] [place], [address], 09/23/2023 19:08:06 09/23/19 24 09/23/2023 CBC/C OMPLE TE BLD COUNT W/DIF F mean platelet volume 9.9 fL 9.0-12 .4 Not Available [facility] (Lab) [address] [place], [address], 09/23/2023 19:08:06 09/23/19 24 09/23/2023 CBC/C OMPLE TE BLD COUNT W/DIF F neutrophils 57.4 % 39.0-7 2.0 Not Available [facility] (Lab) [address] [place], [address], 09/23/2023 19:08:06 09/23/19 24 09/23/2023 CBC/C OMPLE TE BLD COUNT W/DIF F lymphocytes 30.2 % 16.0-4 7.0 Not Available [facility] (Lab) [address] [place], [address], 09/23/2023 19:08:06 09/23/19 24 09/23/2023 CBC/C OMPLE TE BLD COUNT W/DIF F monocytes 8.5 % 5.0-12 .0 Not Available [facility] (Lab) [address] [place], [address], 09/23/2023 19:08:06 09/23/19 24 09/23/2023 CBC/C OMPLE TE BLD COUNT W/DIF F eosinophils 3.1 % 1.0-7. 0 Not Available [facility] (Lab) [address] [place], [address], 09/23/2023 19:08:06 09/23/19 24 09/23/2023 CBC/C OMPLE TE BLD COUNT W/DIF F basophils 0.5 % 0.0-2. 0 Not Available [facility] (Lab) [address] [place], [address], 09/23/2023 19:08:06 09/23/19 24 09/23/2023 CBC/C OMPLE TE BLD COUNT W/DIF F immature granulocytes 0.3 % 0.00-0 .50 Not Available [facility] (Lab) [address] [place], [address], 09/23/2023 19:08:06 09/23/19 24 09/23/2023 CBC/C OMPLE TE BLD COUNT W/DIF F neutrophils, absolute count 5.04 x10'3 /uL 1.5-8. 0 Not Available [facility] (Lab) [address] [place], [address], 09/23/2023 19:08:06 09/23/19 24 09/23/2023 CBC/C OMPLE TE BLD COUNT W/DIF F lymphocytes, absolute count 2.65 x10'3 /uL 1.07-3 .43 Not Available [facility] (Lab) [address] [place], [address], 09/23/2023 19:08:06 09/23/19 24 09/23/2023 CBC/C OMPLE TE BLD COUNT W/DIF F monocytes, absolute count 0.75 x10'3 /uL 0.29-0 .99 Not Available [facility] (Lab) [address] [place], [address], 09/23/2023 19:08:06 09/23/19 24 09/23/2023 CBC/C OMPLE TE BLD COUNT W/DIF F eosinophils, absolute count 0.27 x10'3 /uL 0.02-0 .53 Not Available [facility] (Lab) [address] [place], [address], 09/23/2023 19:08:06 09/23/19 24 09/23/2023 CBC/C OMPLE TE BLD COUNT W/DIF F basophils, absolute count 0.04 x10'3 /uL 0.01-0 .08 Not Available [facility] (Lab) [address] [place], [address], 09/23/2023 19:08:06 09/23/19 24 09/23/2023 CBC/C OMPLE TE BLD COUNT W/DIF F immature granulocytes ,absolute 0.03 x10'3 /uL 0.00-0 .05 Not Available [facility] (Lab) [address] [place], [address], 09/23/2023 19:08:06 09/23/19 24 09/23/2023 CBC/C OMPLE TE BLD COUNT W/DIF F nucleated red blood cells 0.0 % -0 Not Available [facility] (Lab) [address] [place], [address], 09/23/2023 19:08:06 09/23/19 24 09/23/2023 CBC/C OMPLE TE BLD COUNT W/DIF F NRBC# 0.00 x10'3 /uL Not Available [facility] (Lab) [address] [place], [address], 09/23/2023 19:08:06 09/23/19 24 09/23/2023 BASIC METAB OLIC PANEL sodium 140 mmol/ L 137-14 5 Not Available [facility] (Lab) [address] [place], [address], 09/23/2023 19:20:03 09/23/19 24 09/23/2023 BASIC METAB OLIC PANEL potassium 4.1 mmol/ L 3.5-5. 1 Not Available [facility] (Lab) [address] [place], [address], 09/23/2023 19:20:03 09/23/19 24 09/23/2023 BASIC METAB OLIC PANEL chloride 106 mmol/ L 98-107 Not Available [facility] (Lab) [address] [place], [address], 09/23/2023 19:20:03 09/23/19 24 09/23/2023 BASIC METAB OLIC PANEL carbon dioxide 27 mmol/ L 22-30 Not Available [facility] (Lab) [address] [place], [address], 09/23/2023 19:20:03 09/23/19 24 09/23/2023 BASIC METAB OLIC PANEL anion gap 11.1 mmol/ L 14-22 low Not Available [facility] (Lab) [address] [place], [address], 09/23/2023 19:20:03 09/23/19 24 09/23/2023 BASIC METAB OLIC PANEL glucose 168 mg/dL 70-99 high Not Available [facility] (Lab) [address] [place], [address], 09/23/2023 19:20:03 09/23/19 24 09/23/2023 BASIC METAB OLIC PANEL BUN 13 mg/dL 8-19 Not Available [facility] (Lab) [address] [place], [address], 09/23/2023 19:20:03 09/23/19 24 09/23/2023 BASIC METAB OLIC PANEL creatinine 0.91 mg/dL 0.66-1 .25 Not Available [facility] (Lab) [address] [place], [address], 09/23/2023 19:20:03 09/23/19 24 09/23/2023 BASIC METAB OLIC PANEL GFR >60 Refer ence Range : [place] GFR Healt hy Adult : >60 mL/mi n/1.7 3 m2 Chron ic Kidne y Disea se: 15-60 mL/mi n/1.7 3 m2 Kidne y Failu re: <15/m L/min /1.73 m2 www.n iddk. nih.g ov The MDRD study equat ion has not been valid ated in child nora <18 years of age; pregn ant women ; the elder ly >85 years of age; or in some racia l or ethni c subgr oups, such as Hisvt nics. Outsi de the valid ated carlyle eters , estim ated GFR is less accur ate, requi ring clini wes judgm ent on a case- by-ca se basis . Clini wes inter preta tion for other races and ages must be made by the clini marilyn. The MDRD study equat ion has not been valid ated for the evalu ation of serum creat inine relat ed to nutri jody l statu s or medic ation usage . For perso ns <18 years of age, a pedia tric GFR calcu lator is avail able on the [facility] websi te: https :[email or web address] [email or web address] [email or web address] rg/pr ofess ional s/kdo qi/gf r_cal culat or Not Available [facility] (Lab) [address] [place], [address], 09/23/2023 19:20:03 09/23/19 24 09/23/2023 BASIC METAB OLIC PANEL calcium 9.2 mg/dL 8.4-10 .2 Not Available [facility] (Lab) [address] [place], [address], 09/23/2023 19:20:03 09/23/19 24 09/23/2023 PSA, TOTAL PSA, total 6.13 NG/mL 0.00-4 .00 high Not Available [facility] (Lab) [address] [place], [address], 09/23/2023 19:37:59 09/23/19 24 09/23/2023 HEMOG LOBIN A1C HA1C 8.8 % 4.0-6. 0 high Diabe elizabeth Scree angela Crite mohinder: <5.7% Consi stent with absen ce of diabe elizabeth 5.7-6 .4% Consi stent with incre ased risk for diabe elizabeth (pred iabet es) >OR=6 .5% Consi stent with diabe elizabeth REFER ENCE: Diabe elizabeth Care 2016, 39(Hernández ppl.1 ):s13 -s22 Not Available [facility] (Lab) [address] [place], [address], 09/23/2023 19:45:20 Result Notes None recorded. Problems Name Problem SNOMED Code Status Onset Date Resolution Date Notes Provider Name and Address Organization Details Recorded Time Benign prostatic hyperplas ia 516716184 Active [address] 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 next due 2022 Not Available [facility] 01:26:29 Essential hypertens ion 72143935 Active 2022 Shireen Mcdowell MD [address], [place], [address] , [employer] [facility] [employer] 3 10:38:55 Type 2 diabetes mellitus without complicat ion 423560489 Active 2022 Shireen Mcdowell MD [address], [address], [place], [address] , [employer] 3 10:40:58 Hyperlipi demia 37603063 Active 2022 Shireen Mcdowell MD [address], [address], [place], [address] , [employer] [facility] [employer] 3 10:47:24 Lesion of skin of face 000856122177 Active 2022 Shireen Mcdowell MD [address], [address], [place], [address] , [employer] 3 10:52:59 Prostate specific antigen above reference range 149557925 Active 2023 Shireen Mcdowell MD [address], [address], [place], [address] , [employer] [facility] [employer] [facility] 4 10:15:10 Bilateral hearing loss 13874695 Active 2023 Shireen Mcdowell MD [address], [address], [place], [address] , [employer] [facility] [employer] 4 10:18:10 Problem Notes None recorded. Procedures Surgical History Date Name Laterality Status Provider Name and Address Organization Details Recorded Time 09/23/19 24 Medicare Wellness CPT Code, subsequent completed Alice Owens RN [facility] [employer] [facility] 09/23/2023 10:06:44 09/22/19 23 Medicare Wellness CPT Code, Initial completed Maranda Collins RN [facility] 09/17/2022 12:12:36 04/15/20 18 Colonoscopy completed Not Available [facility] 08/21/19 01:25:17 extraction of cataract completed Shireen Mcdowell MD [address] [facility] [address], [place], [address], [place] [facility] [employer] [facility] 09/23/2023 10:17:44 Imaging Results None recorded. Procedure Notes None recorded. Medical Equipment None Reported. Allergies No known drug allergies Medications Name Sig Start Date Stop Date Status Note LastModified by Organization Details LastModified Time losartan 50 mg tablet TAKE 1 TABLET BY MOUTH DAILY 09/22 completed Not Available Not Available Not Available atorvastati n 20 mg tablet TAKE 1 TABLET BY MOUTH DAILY active Not Available Not Available No t Available amlodipine 5 mg tablet TAKE 1 TABLET BY MOUTH EVERY DAY active Not Available Not Available No t Available aspirin 81 mg tablet,jaci yed release Take 1 tablet every day by oral route. 2021 active Not Available Not Available Not Avai lable prednisolon e acetate 1 % eye drops,suspe nsion 09/22 completed Not Available Not Available Not Available triamcinolo ne acetonide 0.025 % topical cream APPLY THIN LAYER TOPICALLY TO THE AFFECTED AREA 2 TO 3 TIMES A DAY NEEDED FOR ITCHING OR INFLAMMAT ION 09/22 completed Not Available Not Available Not Available ciprofloxac in 0.3 % eye drops 09/22 completed Not Available Not Available Not Available cephalexin 500 mg capsule TAKE 1 CAPSULE BY MOUTH TWICE DAILY FOR 10 DAYS 09/22 completed Not Available Not Available Not Available diclofenac 0.1 % eye drops 09/22 completed Not Available Not Available Not Available losartan 100 mg tablet TAKE 1 TABLET BY MOUTH EVERY DAY active Not Available Not Available No t Available Janumet 50 mg-500 mg tablet TAKE 1 TABLET BY MOUTH TWICE DAILY WITH MEALS active Not Available Not Available No t Available Simbrinza 1 %-0.2 % eye drops,suspe nsion SHAKE LIQUID AND INSTILL 1 DROP IN RIGHT EYE TWICE DAILY FOR 1 WEEK active Not Available Not Available No t Available Vitals Date Recorded Body mass index (BMI) Body height Oxygen saturation Oxygen saturation in Arterial blood by Pulse oximetry Heart rate Body temperature Body weight Systolic blood pressure Diastolic blood pressure Provider Name and Address Organization Details Last Updated DateTime 2 31.6 kg/m2 175.26 cm 95 % 95 % 93 /min 97.4 [degF] 73874.7 7 g 122 mm[Hg] 82 mm[Hg] Not Available [facility] 3 01:26:18 Date Recorded Body height Body mass index (BMI) Body weight Body temperature Heart rate Oxygen saturation Oxygen saturation in Arterial blood by Pulse oximetry Systolic blood pressure Diastolic blood pressure Provider Name and Address Organization Details Last Updated DateTime 3 175.26 cm 30.7 kg/m2 68070.2 1 g 97.7 [degF] 80 /min 97 % 97 % 144 mm[Hg] 86 mm[Hg] Fadumo Miller MA [facility] [employer] 3 10:22:54 Date Recorded Body height Body mass index (BMI) Body weight Body temperature Heart rate Oxygen saturation Oxygen saturation in Arterial blood by Pulse oximetry Systolic blood pressure Diastolic blood pressure Provider Name and Address Organization Details Last Updated DateTime 3 175.26 cm 31.2 kg/m2 84872.9 9 g 97.5 [degF] 87 /min 96 % 96 % 152 mm[Hg] 84 mm[Hg] Alice Owens RN [facility] [employer] 3 09:57:39 Date Recorded Body height Body mass index (BMI) Body weight Body temperature Heart rate Oxygen saturation Oxygen saturation in Arterial blood by Pulse oximetry Systolic blood pressure Diastolic blood pressure Provider Name and Address Organization Details Last Updated DateTime 4 175.26 cm 31.9 kg/m2 89952.9 5 g 98.1 [degF] 89 /min 98 % 98 % 198 mm[Hg] 110 mm[Hg] Alice Owens RN [facility] [employer] 4 10:09:56 Date Recorded Pain severity - 0-10 verbal numeric rating [Score] - Reported Provider Name and Address Organization Details Last Updated DateTime 09/23/2023 Mable Schmitt RN [facility] [employer] 09/23/2023 10:28:51 Date Recorded Body height Body mass index (BMI) Body weight Body temperature Heart rate Oxygen saturation Oxygen saturation in Arterial blood by Pulse oximetry Systolic blood pressure Diastolic blood pressure Provider Name and Address Organization Details Last Updated DateTime 4 175.26 cm 31 kg/m2 68579.4 g 98.3 [degF] 98 /min 97 % 97 % 158 mm[Hg] 98 mm[Hg] Claudia Ruiz RN [place] [facility] [employer] 4 10:34:51 Social History Question Answer Notes LastModified by Organizat ion Details LastModified Time Tobacco Smoking Status Never Smoker Not Available [facility] 08/20/2022 01:25:10 Do You Have An Advance Directive? Yes Information not available 09/17/2022 What Is Your Level Of Alcohol Consumption? Occasional [id number] Information not available 08/20/2022 Are You Blind Or Do You Have Difficulty Seeing? No Information not available 09/17/2022 What Is Your Level Of Caffeine Consumption? Occasional [id number] Information not available 08/20/2022 Are You Deaf Or Do You Have Serious Difficulty Hearing? No Information not available 09/17/2022 What Type Of Diet Are You Following? REGULAR [id number] Information not available 08/20/2022 What Is The Highest Grade Or Level Of School You Have Completed Or The Highest Degree You Have Received? 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 No [id number] Information not available 08/20/2022 Do You Use Insect Repellent Routinely? No [id number] Information not available 08/20/2022 Where Do You Live? [place] Information not available 09/17/2022 Presence Of Domestic Violence No Information not available 09/17/2022 Are You Able To Care For Yourself? Yes Information not available 09/17/2022 Are You Blind Or Do Yo Have Difficulty Seeing? No Information not available 09/17/2022 Are You Deaf Or Do You Have Serious Difficulty Hearing? No Information not available 09/17/2022 General Stress Level? Low Information not available 09/17/2022 Live Alone Of With Others? Alone Information not available 09/17/2022 What Was The Date Of Your Most Recent Tobacco Screening? 09/23/2023 Information not available 09/23/2023 Do You Have Any Pets? Yes [id number] Information not available 08/20/2022 What Is Your Relationship Status? [id number] Information not available 08/20/2022 Do You Have Smoke And Carbon Monoxide Detectors In Your Home? Yes [id number] Information not available 08/20/2022 Are You Passively Exposed To Smoke? No [id number] Information not available 08/20/2022 Are There Any Smokers In Your House? No [id number] Information not available 08/20/2022 Do You Feel Stressed (tense, Restless, Nervous, Or Anxious, Or Unable To Sleep At Night)? [id number] Information not available 09/17/2022 Do You Use Sunscreen Routinely? No [id number] Information not available 08/20/2022 Has Tobacco Cessation Counseling Been Provided? No Information not available 09/17/2022 Are You Currently In School? No [id number] [id number] Information not available 08/20/2022 Do You Have Any Dietary Restrictions? No [id number] Information not available 08/20/2022 Do You Or Have You Ever Used Any Other Forms Of Tobacco Or Nicotine? No Information not available 09/17/2022 Sex: Male Functional Status Question Answer Note LastModified by Organizat ion Details LastModified Time Do you have difficulty walking or climbing stairs? No Information not available 09/17/2022 Do you have transportation difficulties? No Information not available 09/17/2022 Are you able to walk? YESWOREST Information not available 09/17/2022 Do you have difficulty doing errands alone? No Information not available 09/17/2022 Are you able to care for yourself? Yes Information n ot available 09/17/2022 Do you have difficulty dressing or bathing? No Information not available 09/17/2022 What is your exercise level? Occasional Information not available 09/17/2022 Mental Status Question Answer Note LastModified by Organization D etails LastModified Time Do you have difficulty concentrating, remembering or making decisions? No Information no t available 09/17/2022 Family History Relationship Description Onset Age of this Age Resolved Age Notes LastModified by Organization Details LastModified Time Father Malignant tumor of lung [id number] Not available 08/20/2022 01:25:22 Brother Malignant tumor of lung [id number] Not available 08/20/2022 01:25:22 Brother Malignant tumor of pharynx [id number] Not available 08/20/2022 01:25:22 Medical History No medical history recorded. Immunizations Vaccine Type Date Status Note Provider Nam e and Address Organization Details Recorded Time Influenza, high-dose, quadrivalent, PF 03/23/2022 completed Not Available [facility] 01:28:02 Influenza, high-dose, quadrivalent, PF 03/22/2023 completed Alice Owens RN [facility], [place] - S [place] [facility] 03/22/2023 10:53:18 Past Encounters Encounter ID Performer Location Encounter Start Date Encounter Closed Date Diagnosis/Indication Diagnosis SNOMED-CT Code Diagnosis ICD10 Code Diagnosis Note [id number] [facility] Primary Care [address] [place] [address] 03/23/2022 00:00:00 03/24/2022 13:38:51 [id number] Shireen Mcdowell MD [facility] Primary Care [facility] [address] [facility] [address] [place] [address] 09/21/2022 10:12:28 09/21/2022 11:06:55 Adult health examination 023489519 Z00.00 check fasting labs and PSAshingle s vaccine recommende dflu vaccine yearlycovi d bivalent booster recommende dcolonosco py repeat done 03/2023 Screening for disorder 452436690 Z13.9 Benign pro static hyperplasia 786578066 N40.[address] Davila Polyp of colon 14212893 K63.5 repeat colonoscop y is due 03/2023ref erral given Essential hypertension 19090030 I10 stablechec k labscontin ue losartan 50 mg daily 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 670585049 E11.9 diabetic eye exam orderedpod iatry referral declinedch shannan a1c and microalbum instableco ntinue janumet 50/500 mg daily Hyperlipidemia 91192289 E78.5 Z79.899 stablecont inue atorvastat in 20 mg daily Lesion of skin of face 5072440030 06 L98.9 noted on exam, suspicious for skin cancerderm referral givenavoid sun exposure Body mass index 30+ - obesity 432865626 Z68.30 Healthy diet/exerc ise recommende d [id number] Shireen Mcdowell MD [facility] Primary Care [facility] [address] [facility] [address] [place] [address] 03/22/2023 09:51:07 03/22/2023 10:19:59 Administration of influenza vaccine 16399521 Z23 Benign pro static hyperplasia 181428212 N40.0 repeat psa Essential hypertension 48681081 I10 stablechec k labscontin ue losartan 50 mg daily 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 670058671 E11.9 diabetic eye exam orderedpod iatry referral declinedch shannan t5rebczfeh ontinue janumet 50/500 mg daily Hyperlipidemia 28446733 E78.5 Z79.899 stablecont inue atorvastat in 20 mg daily [id number] Shireen Mcdowell MD [facility] Primary Care [facility] [address] [facility] [address] [place] [address] 09/23/2023 10:03:41 09/23/2023 10:37:38 Adult health examination 847424076 Z00.00 check fasting labs and PSAshingle s vaccine recommende dflu vaccine yearlyreco mmend covid boosterno further colon cancer screen needed to ageTdap 2019 Screening for disorder 885625430 Z13.9 Prostate s pecific antigen above reference range 696292555 R97.20 slightly elevated 04/12will repeat Benign pro static hyperplasia 163138043 N40.0 repeat psa Essential hypertension 41385667 I10 not in good controlche ck labsincrea se losartan 100 mg dailyf/u in 3 months 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 161631812 E11.9 diabetic eye exam done 04/12podia try referral declineda1 cstablecon tinue janumet 50/500 mg daily Bilateral hearing loss 47646772 H91.93 has lost 1 hearing aid, he will be contacting the audiologis t [id number] Long [place], [facility] Primary Care [facility] [address] [facility] [address] [place] [address] 02/24/2024 10:27:33 02/24/2024 10:53:03 Essential hypertension 19662829 I10 bp 158/98, 98takes losartan 100mg at bedtimeuns ure of water intaketria l amlodipine Health Concerns Section Related Observation LastModified by Organization Detai ls LastModified Time None Recorded Concern Status LastModified by Organization Details LastModified Time None Recorded Advance Directives Directive Y: Payers Encounter Date Sequence Insurance Name Policy Number Policy Dee Covered Member ID Dee Member ID Guarantor Name 09/21/2022 1 [employer] (MEDICARE REPLACEMENT/A DVANTAGE - HMO) [id number] Raymundo A Jemal [id number] Raymundo A Jemal 03/22/2023 1 [employer] (MEDICARE REPLACEMENT/A DVANTAGE - HMO) [id number] Raymundo A Jemal [id number] Raymundo A Jemal 09/23/2023 1 [employer] (MEDICARE REPLACEMENT/A DVANTAGE - HMO) [id number] Raymundo A Jemal [id number] Raymundo A Jemal 02/24/2024 1 [employer] (MEDICARE REPLACEMENT/A DVANTAGE - HMO) [id number] Raymundo A Jemal [id number] Raymundo A Jemal Notes Date Note Type Note Provider Name and Address Organization Details Recorded Time 09/21/2022 text/html here for wellness exam. No home blood sugars for review. He is feeling well, taking meds as prescribed. No chest pain, no sob. Shireen Mcdowell MD [address] [place] [address], [place], [address], [facility] [employer] 09/21/2022 10:56:35 03/22/2023 text/html Here to f/u on diabetes and htn. No home readings for review. No chest pain or sob. Shireen Mcdowell MD [address] [address], [place], [address], [employer] [facility] [employer] 03/22/2023 10:07:48 09/23/2023 text/html here for wellness exam. No home blood sugars for review. He is feeling well, taking meds as prescribed. No chest pain, no sob. currently wearing hearing aids Shireen Mcdowell MD [address] [address], [place], [address], [employer] [facility] [employer] 11/01/2023 09:34:43 02/24/2024 text/html pt is here for f/u ADAMA Barrett [address] [address], [place], [address], [employer] [facility] [employer] 02/24/2024 10:50:14
--- OUTSIDE RECORDS SUMMARY | 2024-09-13 22:33 | XMS_ITS | Clinical Summary ---
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
--- NOTE | 2024-09-13 22:38 | ECG_ITS ---
Test Date: 2024-09-13 22:42:34 Measurements Intervals [place] Rate: 98 P: 261 MN: 201 QRS: 50 QRSD: 144 T: -24 QT: 359 QTc: 458 Interpretive Statements ECTOPIC ATRIAL RHYTHM RIGHT BUNDLE BRANCH BLOCK [120+ ms QRS DURATION, UPRIGHT V1, 40+ ms S IN I/aVL/V4/V5/V6] No previous ECG available for comparison Electronically Signed On 09-14-2024 11:43:55 CDT by Eliezer Ray M.D.
[2024-09-13 22:56] LABS: Basophils Absolute Auto 0.1 K/mm3 (0.0-0.1); Basophils Percent Auto 0.6 % (0.2-1.2); Eosinophils Absolute Auto 0.3 K/mm3 (0-0.3); Eosinophils Percent Auto 2.6 % (0-4.4); Hemoglobin 13.7 g/dL (14.0-18.0); Immature Granulocyte Absolute 0.03 K/mm3 (0.00-0.031); Immature Granulocyte Percent A 0.3 % (0-0.5); Lymphocytes Absolute Auto 2.34 K/mm3 (0.9-3.2); Lymphocytes Percent Auto 22.5 % (18.3-44.2); Mean Corpuscular HGB Conc 34.3 g/dl (32-36); Mean Corpuscular Hemoglobin 30.5 pg (26-34); Mean Corpuscular Volume 89.1 fl (80-100); Mean Platelet Volume 9.2 fl (7.4-10.4); Monocytes Absolute Auto 0.9 K/mm3 (0.1-0.6); Monocytes Percent Auto 8.2 % (2.6-8.5); Neutrophils Absolute Auto 6.8 K/mm3 (1.3-6.7); Neutrophils Percent Auto 65.8 % (45.5-73.1); Platelet Count Result 214 k/mm3 (150-375); Red Blood Count 4.49 M/mm3 (4.6-6.20); Red Cell Distribution Width 13.1 % (11.5-14.5); White Blood Count 10.4 K/mm3 (4.5-10.0)
[2024-09-13 23:08] LABS: Alanine Aminotransferase 36 U/L (6-50); Albumin Level 4.3 g/dL (3.5-5.1); Alkaline Phosphatase 69 U/L (38-126); Anion Gap 14 mmol/L (4-12); Aspartate Amino Transferase 39 U/L (17-59); Bilirubin,Total 0.5 mg/dL (0.2-1.3); Blood Urea Nitrogen 19 mg/dL (9-20); Calcium 9.2 mg/dL (8.4-10.2); Carbon Dioxide 23 mmol/L (22-30); Chloride 103 mmol/L (98-107); Estimated CRCL calculation 61 ml/min; Estimated Glomerular Filt Rate > 60; Glucose 233 mg/dL (65-110); Potassium 4.1 mmol/L (3.4-5.0); Sodium 140 mmol/L (137-145)
[2024-09-13 23:31] LABS: Influenza A QL RT-PCR Negative (Negative); Influenza B QL RT-PCR Negative (Negative); RSV RNA, RT-PCR Negative (Negative); SARS-CoV-2 RNA PCR Negative (Negative)
[2024-09-13 23:47] VITALS: BP 151/96; PULSE 100; RESP 17; O2SAT 96
[2024-09-13 23:55] VITALS: BP 151/96; PULSE 105; RESP 14; O2SAT 96
[2024-09-14] VITALS (17 sets, daily range): BP systolic 120–166; BP diastolic 70–118; PULSE 72–106; RESP 14–22; O2SAT 95–99
--- OUTSIDE RECORDS SUMMARY | 2024-09-14 00:11 | XMS_ITS | Encounter Summary ---
Author Organization [facility] Address 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
--- OUTSIDE RECORDS SUMMARY | 2024-09-14 00:11 | XMS_ITS | Clinical Summary ---
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
--- NOTE | 2024-09-14 00:12 | ED_ITS ---
HPI - Weakness General Chief complaint: Weakness Stated complaint: Weakness Time Seen by Provider: 09/13/24 23:39 History of Present Illness HPI Narrative: 79-year-old male with a history of hypertension, hyperlipidemia, type 2 diabetes presents to the ED via EMS from home with ex- at bedside for weakness. Patient states he went to the bathroom at 7:00 p.m. and was sitting on the toilet when he states he became dizzy and fell forward off of the toilet. He did not hit his head. He denies syncope or losing consciousness, however per the ex- he had reported to his daughter that he thinks he may have lost consciousness. On my evaluation the patient is adamant that he never lost consciousness. He states he laid on the ground in the bathroom for an hour and a half until he was able to crawl to his bed room, get his phone and call his daughter who then contacted his ex- who came to the house and called 911. The patient states he was unable to walk due to weakness of both of his legs. On my evaluation he has no complaints other than diffuse weakness. He denies chest pain, shortness of breath, palpitations, headache, vision changes, cough or congestion, abdominal pain, dysuria or hematuria, dizziness. On further questioning and during exam, patient is reporting some numbness and tingling to his left arm as well as weakness to his left arm which is new since 7:00 p.m this evening. No history of CVA. Patient is not on anticoagulant or Plavix does take a daily baby aspirin. Related Data Allergies Allergy/AdvReac Type Severity Reaction Status Date / Time No Known Allergies Allergy Unverified 03/08/17 00:17 Review of Systems 2 Review of Systems: All systems reviewed & are unremarkable except as noted in HPI and below Exam 2 Narrative: GENERAL: Well-appearing, well-nourished, and in no acute distress. HEAD: Normocephalic, atraumatic. EYES: PERRLA and EOMI. ENT: Nares clear, no rhinorrhea or epistaxis. Mucous membranes moist. NECK: Supple. No midline cervical spinous tenderness, crepitus, step-offs or deformities CHEST: Clear to auscultation. No respiratory distress. HEART: Regular rate and rhythm. No murmur heard. Normal peripheral pulses. ABDOMEN: Soft, nontender, nondistended, normal active bowel sounds. EXTREMITIES: Normal range of motion. No edema. SKIN: Warm, dry, no rash. NEURO: No focal deficits. Alert and oriented x4. Cranial nerves 2-12 intact. Sensation intact throughout. Left leg motor drift but does not hit bed, left arm drift with slight pronation when both arms held in extension and eyes closed. Remainder of strength 5/5 throughout. Left arm ataxia when performing [id number], normal right arm [id number]. GCS 15. Course Vital Signs Vital signs: Vital Signs Temperature 97.9 F 09/13/24 22:33 Pulse Rate 99 09/13/24 22:33 Respiratory Rate 15 09/13/24 22:33 Blood Pressure 152/84 H 09/13/24 22:33 Pulse Oximetry 100 09/13/24 22:33 Oxygen Delivery Room Air 09/13/24 22:33 Temperature 97.9 F 09/13/24 22:33 Pulse Rate 77 09/14/24 03:23 Respiratory Rate 15 09/14/24 03:23 Blood Pressure 150/80 H 09/14/24 03:23 Pulse Oximetry 97 09/14/24 03:23 Oxygen Delivery Room Air 09/13/24 22:33 MDM - Weakness MDM Narrative Medical decision making narrative: 79-year-old male with history of hypertension, hyperlipidemia, type 2 diabetes presents to the ED via EMS for weakness. Patient fell off of the toilet around 7:00 p.m. and has had weakness since. Vitals with blood pressure 152/84, otherwise unremarkable. On exam patient was found to have weakness to the left leg, left arm pronator drift and left arm ataxia. See neuro exam noted above. GCS 15. NIHSS 3. CT of the brain shows a 1.3 cm acute right thalamic hematoma, likely hypertensive, no herniation. CTA head and neck showed no acute occlusion, no severe stenosis or aneurysm, there is mild right ICA stenosis. Labs remarkable for hypomagnesemia of 1.4, magnesium intravenously repleted. EKG shows ectopic atrial rhythm with a rate of 90 ppm, first-degree AV block, RBBB, normal QRS duration, normal QTC, no ST elevation or depression. Troponin undetectable. UA concerning for UTI. Patient started on Rocephin. Given acute thalamic hematoma, plan to transfer to tertiary facility for neurosurgery. I discussed the case with our neurosurgeon, Dr. Mills, who confirms transfer to higher level of care given concerns for possible worsening bleed, patient may need more intervention than we can offer. Discussed with ED [facility] physician, Dr. Adams who agrees to transfer. Accepting trauma physician is Dr. Castro. Patient and family at bedside updated on results and agree to plan of care. BP did increase to 166/101, pt given one time dose of labetalol. ALS will not get here until 5:45am. I did discuss possibility of flying to [facility], however patient would prefer to wait for ambulance at this time. Lab Data 09/13/24 22:49 09/13/24 22:49 Labs: Lab Results 09/13/24 09/14/24 09/14/24 Range/Units 22:49 01:28 02:35 WBC 10.4 H (4.5-10.0) K/mm3 RBC 4.49 L (4.6-6.20) M/mm3 Hgb 13.7 L (14.0-18.0) g/dL Hct 40.0 L (42.0-52.0) % MCV 89.1 (80-100) fl MCH 30.5 (26-34) pg MCHC 34.3 (32-36) g/dl RDW 13.1 (11.5-14.5) % Plt Count 214 (150-375) k/mm3 MPV 9.2 (7.4-10.4) fl Immature Gran % (Auto) 0.3 (0-0.5) % Neut % (Auto) 65.8 (45.5-73.1) % Lymph % (Auto) 22.5 (18.3-44.2) % Bartholomew % (Auto) 8.2 (2.6-8.5) % Eos % (Auto) 2.6 (0-4.4) % Baso % (Auto) 0.6 (0.2-1.2) % Lymph # (Auto) 2.34 (0.9-3.2) K/mm3 Bartholomew # (Auto) 0.9 H (0.1-0.6) K/mm3 Eos # (Auto) 0.3 (0-0.3) K/mm3 Baso # (Auto) 0.1 (0.0-0.1) K/mm3 Abs Immat Gran (auto) 0.03 (0.00-0.031) K/mm3 Absolute Neuts (auto) 6.8 H (1.3-6.7) K/mm3 Absolute Nucleated RBC 0.000 (0.0-0.012) K/mm3 Nucleated RBC % 0.0 (0.0-0.2) % PT 13.8 (11.1-14.7) Seconds INR 1.0 APTT 29.3 (22.3-36.8) Seconds Sodium 140 (137-145) mmol/L Potassium 4.1 (3.4-5.0) mmol/L Chloride 103 (98-107) mmol/L Carbon Dioxide 23 (22-30) mmol/L Anion Gap 14 H (4-12) mmol/L BUN 19 (9-20) mg/dL Creatinine 1.03 (0.7-1.3) mg/dL Estim Creat Clear Calc 61 ml/min Estimated GFR > 60 (59 - ) Glucose 233 H (65-110) mg/dL Lactic Acid 1.8 (0.7-2.0) mmol/L Calcium 9.2 (8.4-10.2) mg/dL Magnesium 1.4 L (1.6-2.3) mg/dL Total Bilirubin 0.5 (0.2-1.3) mg/dL AST 39 (17-59) U/L ALT 36 (6-50) U/L Alkaline Phosphatase 69 (38-126) U/L Total Creatine Kinase 143 (55-170) U/L Troponin I < 0.012 (0.000-0.034) ng/mL Total Protein 8.0 (6.3-8.2) g/dL Albumin 4.3 (3.5-5.1) g/dL Urine Color Yellow (Yellow) Urine Appearance Clear (Clear) Urine pH 6.5 (5.0-9.0) Ur Specific [place] 1.045 H (1.001-1.035) Urine Protein 1+ H (Negative) mg/dL Urine Glucose (UA) Negative (Negative) mg/dL Urine Ketones Negative (Negative) mg/dL Ur Blood (Man) Negative (Negative) Urine Nitrate Negative (Negative) Urine Bilirubin Negative (Negative) Urine Urobilinogen 0.2 (<2.0) mg/dL Leukocyte Esterase Rfl 1+ H (Negative) JAS/UL Urine RBC 0-2 (0-2) /hpf Urine WBC 51-100 H (0-3) /hpf Ur Squamous Epith Cells None seen (Few) /hpf Urine Bacteria Rare /hpf Urine Casts 0-2 Influenza A (RT-PCR) Negative (Negative) Influenza B (RT-PCR) Negative (Negative) RSV (RT-PCR) Negative (Negative) SARS-CoV-2 RNA (RT-PCR) Negative (Negative) Discharge Plan Discharge Clinical Impression: Thalamic hemorrhage, Acute UTI Patient Disposition: Acute Care Hospital Condition: Serious Patient Language: Indonesian Follow-up/Referrals: Baltazar,Tom Vance MD [Primary Care Provider] -
[2024-09-14 00:14] LABS: Magnesium 1.4 mg/dL (1.6-2.3)
[2024-09-14 00:27] LABS: Prothrombin Time 13.8 Seconds (11.1-14.7); Troponin I < 0.012 ng/mL (0.000-0.034)
[2024-09-14 00:28] LABS: Partial Thromboplastin Time 29.3 Seconds (22.3-36.8)
[2024-09-14 00:47] LABS: Creatine Kinase 143 U/L (55-170)
[2024-09-14] MEDS: MAGNESIUM SULF 2 GM/WATER 50ML 2 GM/50 ML BAG IVPB (01:20)
[2024-09-14 01:38] LABS: Add Urine Microscopic? YES; Appearance Urine Clear (Clear); Bacteria Urine Rare /hpf; Bilirubin Urine Negative (Negative); Blood Urine Negative (Negative); Color Urine Yellow (Yellow); Glucose Urine UA Negative (Negative); Ketones Urine Negative (Negative); Leukocyte Esterase Ur 1+ LEU/UL (Negative); Nitrate Urine Negative (Negative); Non Pathogenic Casts 0-2; Protein Urine 1+ mg/dL (Negative); RBC Urine 0-2 /hpf (0-2); Specific Grav Ur 1.045 (1.001-1.035); Squamous Epithelial Cell Urine None Seen /hpf (Few); Urobilinogen Urine 0.2 mg/dL (<2.0); WBC Urine 51-100 /hpf (0-3); pH Urine 6.5 (5.0-9.0)
[2024-09-14] MEDS: LABETALOL HCL INJ 100 MG/20 ML VIAL 20 MG IV PUSH (02:40)
[2024-09-14] MEDS: SODIUM CHLORIDE 0.9% IV 1,000 ML 999 ML IV CONT (02:53)
[2024-09-14 02:59] LABS: Lactic Acid Reflex 1.8 mmol/L (0.7-2.0)
== END 2024-09-14 08:58 | disposition short-term general hospital (02) ==
PROVIDERS: Student in an Organized Health Care Education/Training Program; Emergency Provider Physician Assistant; PCP Internal Medicine
DX: I61.0 Nontraumatic intracerebral hemorrhage in hemisphere, subcortical (principal); R29.703 NIHSS score 3; N39.0 Urinary tract infection, site not specified; Z20.822 Contact with and (suspected) exposure to COVID-19; I10 Essential (primary) hypertension; E11.9 Type 2 diabetes mellitus without complications; Z79.82 Long term (current) use of aspirin; R90.82 White matter disease, unspecified; I45.10 Unspecified right bundle-branch block
CPT/HCPCS: 36415; 70450; 70496; 70498; 71046; 72125; 80053; 81001; 82550; 83605; 83735; 84484; 85025; 85610; 85730; 87040; 87077; 87086; 87186; 87637; 93005; 96365; 96366; 96367; 96375; 99285; J0696; J3475; J7030; Q9967

== ENCOUNTER 2024-10-24 11:34 | Outpatient (CLI) | payer MEDICARE, SELFPAY ==
--- NOTE | ~2024-10-24 | US_ITS ---
US retroperitoneal comp 10/24/2024 12:02 Procedure: Realtime transabdominal ultrasound of the kidneys and bladder. Indication: Acute renal failure Comparison: No prior studies for comparison. Findings: Renal echotexture is normal bilaterally without hydronephrosis, contour deforming mass or r enal calculus. The right kidney measures 9.3 cm and left kidney measures 10.6 cm. Bladder within nor mal limits. Impression: 1: Unremarkable renal ultrasound. No stones, masses or hydronephrosis. Reviewed, dictated and finalized at location A. Impression: 1: Unremarkable renal ultrasound. No stones, masses or hydronephrosis.
== END 2024-10-24 11:35 | disposition home or self-care (01) ==
LOC: MICIMG 11:37
PROVIDERS: PCP Internal Medicine
DX: N17.9 Acute kidney failure, unspecified (principal)
CPT/HCPCS: 76770